=== PATIENT | male | born 1960 | race Caucasian/White ===

== ENCOUNTER 2017-08-17 01:09 | Emergency (ER) | payer MEDICARE, MEDICAID ==
[~2017-08-17] VITALS: Ht 180.3 cm; Wt 81.2 kg
[~2017-08-17 01:09] MED LIST: ALBU8.5H8 IH; AMLO10TA89 PO; HYDR-3972 PO
[2017-08-17 03:46] VITALS: BP 134/83
== END 2017-08-17 04:29 | disposition home or self-care (01) ==
LOC: ER 01:09
DX: J22 Unspecified acute lower respiratory infection (principal); I10 Essential (primary) hypertension; J44.9 Chronic obstructive pulmonary disease, unspecified; G89.29 Other chronic pain; Z98.890 Other specified postprocedural states
CPT/HCPCS: 99281

== ENCOUNTER 2017-10-11 09:07 | Emergency (ER) | payer MEDICARE, MEDICAID ==
[~2017-10-11] VITALS: Ht 175.3 cm; Wt 80.0 kg
[2017-10-11 09:13] VITALS: BP 133/94
[2017-10-11] MEDS ORDERED: ibuprofen tablet 400 MG TABLET PO ONE (10:30)
[2017-10-11] MEDS ORDERED: HYDR-565 PO (11:40)
== END 2017-10-11 12:09 | disposition home or self-care (01) ==
LOC: ER 09:08
DX: M25.531 Pain in right wrist (principal); I10 Essential (primary) hypertension; J44.9 Chronic obstructive pulmonary disease, unspecified; M19.90 Unspecified osteoarthritis, unspecified site; G89.29 Other chronic pain; Z90.49 Acquired absence of other specified parts of digestive tract; Z98.890 Other specified postprocedural states; Z79.899 Other long term (current) drug therapy; W19.XXXA Unspecified fall, initial encounter; Y93.89 Activity, other specified; Y92.89 Other specified places as the place of occurrence of the external cause; Y99.9 Unspecified external cause status
CPT/HCPCS: 29125; 73100; 99284; A6449

== ENCOUNTER 2017-11-17 14:48 | Emergency (ER) | payer MEDICARE, MEDICAID ==
[~2017-11-17] VITALS: Ht 180.3 cm; Wt 63.0 kg
[2017-11-17 14:51] VITALS: BP 126/77
== END 2017-11-17 16:17 | disposition home or self-care (01) ==
LOC: ER 14:48
DX: S92.251A Displaced fracture of navicular [scaphoid] of right foot, initial encounter for closed fracture (principal); I10 Essential (primary) hypertension; I25.2 Old myocardial infarction; J44.9 Chronic obstructive pulmonary disease, unspecified; M19.90 Unspecified osteoarthritis, unspecified site; G89.29 Other chronic pain; Z90.49 Acquired absence of other specified parts of digestive tract; Z98.890 Other specified postprocedural states; Z79.899 Other long term (current) drug therapy; W18.39XA Other fall on same level, initial encounter; Y93.89 Activity, other specified; Y92.89 Other specified places as the place of occurrence of the external cause; Y99.8 Other external cause status
CPT/HCPCS: 29125; 73110; 99284

== ENCOUNTER 2017-11-18 14:13 | Outpatient (CLI) | payer MEDICARE, MEDICAID | END 2017-11-18 15:03 | disposition home or self-care (01) | LOC: ORTHO 14:13 | PROVIDERS: ATTEND Nurse Practitioner Family | DX: M19.032 Primary osteoarthritis, left wrist (principal); I10 Essential (primary) hypertension; Z72.89 Other problems related to lifestyle | CPT/HCPCS: 73110; 99213 ==

== ENCOUNTER 2017-12-08 04:11 | Emergency (ER) | payer MEDICARE, MEDICAID ==
[~2017-12-08] VITALS: Ht 180.3 cm; Wt 75.3 kg
[2017-12-08 04:19] VITALS: BP 151/96
[2017-12-08] MEDS ORDERED: HYDROcodone/acetaminophen 10/325mg tab PO ONE (04:40)
[2017-12-08] MEDS ORDERED: HYDR-569 PO (04:55)
[2017-12-08] MEDS ORDERED: AMOX-580 PO (04:55)
== END 2017-12-08 05:27 | disposition home or self-care (01) ==
LOC: ER 04:11
DX: S61.412A Laceration without foreign body of left hand, initial encounter (principal); S61.452A Open bite of left hand, initial encounter; I10 Essential (primary) hypertension; I25.2 Old myocardial infarction; J44.9 Chronic obstructive pulmonary disease, unspecified; M19.90 Unspecified osteoarthritis, unspecified site; G89.29 Other chronic pain; Z90.49 Acquired absence of other specified parts of digestive tract; Z98.890 Other specified postprocedural states; Z79.899 Other long term (current) drug therapy; W54.0XXA Bitten by dog, initial encounter; Y93.89 Activity, other specified; Y92.89 Other specified places as the place of occurrence of the external cause; Y99.8 Other external cause status
CPT/HCPCS: 73130; 99284; A6446; A6449

== ENCOUNTER 2017-12-09 14:12 | Inpatient (IN) | payer MEDICARE, MEDICAID ==
[~2017-12-09] VITALS: Ht 180.3 cm; Wt 75.6 kg
[~2017-12-09 14:12] MED LIST changes: +AMOX-580 PO; +HYDR-569 PO
[2017-12-09] MEDS ORDERED: piperacillin/tazo 3.375gm/50ml 50 ML IV ONE (15:35)
[2017-12-09] MEDS ORDERED: normal saline 1000ML IV soln IV ONE (15:35)
[2017-12-09] MEDS ORDERED: vancomycin/NS 1 GM ADD-VANTAGE 250 ML IV ONE (15:35)
[2017-12-09 16:01] LABS: BASOPHILS % (AUTO) 0.6 % (0-1); EOSINOPHILS # (AUTO) 0.3 X10'3 (0-0.9); EOSINOPHILS % (AUTO) 4.8 % (0-6); HEMATOCRIT 39.3 % (42.0-52.0); LYMPHOCYTES % (AUTO) 15.8 % (21-51); MEAN CORPUSCULAR HEMOGLOBIN 26.6 PG (27.0-31.0); MEAN CORPUSCULAR HGB CONC 33.2 % (33.0-36.5); MEAN CORPUSCULAR VOLUME 80.2 FL (78-98); MONOCYTES # (AUTO) 0.7 X10'3 (0-0.9); MONOCYTES % (AUTO) 11.4 % (2-12); NEUTROPHILS # (AUTO) 4.1 X10'3 (1.8-7.7); NEUTROPHILS % (AUTO) 67.4 % (42-75); PLATELET COUNT 324 X10'3 (140-440); RED CELL DISTRIBUTION WIDTH 17.1 % (11.5-14.5); WHITE BLOOD COUNT 6.1 X10'3 (4.5-11.0)
[2017-12-09] MEDS ORDERED: morphine 4 MG/ML inj SYRINge IV ONE (16:15)
[2017-12-09] MEDS ORDERED: ondansetron/PF 4mg/2ml inj IV ONE (16:15)
[2017-12-09 16:16] LABS: ALANINE AMINOTRANSFERASE 22 U/L (12-78); ALBUMIN 3.4 G/DL (3.4-5.0); ALBUMIN/GLOBULIN RATIO 0.7 (1.1-1.5); ALKALINE PHOSPHATASE 98 IU/L (46-116); ANION GAP 12 (8-16); ASPARTATE AMINO TRANSFERASE 19 U/L (10-37); BILIRUBIN,TOTAL 0.7 MG/DL (0.1-1.0); BLOOD UREA NITROGEN 14 MG/DL (7-18); BUN/CREATININE RATIO 15.1 (5.4-32.0); CALCIUM 9.2 MG/DL (8.5-10.1); CHLORIDE 104 MMOL/L (99-107); CREATININE 0.93 MG/DL (0.60-1.10); POTASSIUM 3.5 MMOL/L (3.5-5.1); SODIUM 139 MMOL/L (135-145); TOTAL CARBON DIOXIDE 23.5 MMOL/L (24-32); TOTAL PROTEIN 8.4 G/DL (6.4-8.2); eGFR 83 ML/MIN
[2017-12-09 16:17] LABS: GLUCOSE 94 MG/DL (70-104)
[2017-12-09 18:10] VITALS: BP 130/70
[2017-12-09] MEDS ORDERED: mag hydrox/Alum hydrox/simeth 30ml oral suspension PO PRN (18:35)
[2017-12-09] MEDS ORDERED: morphine 4 MG/ML inj SYRINge IV PRN ×2 (18:35)
[2017-12-09] MEDS ORDERED: acetaminophen 325mg tablet PO PRN ×2 (18:35)
[2017-12-09] MEDS ORDERED: magnesium Cl slow-release 64mg tablet PO PRN (18:35)
[2017-12-09] MEDS ORDERED: ondansetron/PF 4mg/2ml inj IV PRN (18:35)
[2017-12-09] MEDS ORDERED: magnesium 4gm in 100ml NS 100 ML IV PRN (18:35)
[2017-12-09] MEDS ORDERED: potassium Cl 40MEQ/NS 500ml 500 ML IV PRN ×2 (18:35)
[2017-12-09] MEDS ORDERED: HYDROcodone/acetaminophen 5mg/325mg tablet PO PRN (18:35)
[2017-12-09] MEDS ORDERED: magnesium 1gm/100ml D5W IVPB 100 ML IV PRN (18:35)
[2017-12-09] MEDS ORDERED: magnesium hydroxide 30ml (MOM) UD suspension PO PRN (18:35)
[2017-12-09] MEDS ORDERED: diphenhydrAMINE 25mg capsule PO PRN (18:35)
[2017-12-09] MEDS: K and/or MAG REPLACEMENT MC SCH (18:35)
[2017-12-09] MEDS ORDERED: potassium Cl 20 mEq SR tablet PO PRN ×2 (18:35)
[2017-12-09] MEDS: normal saline 1000ml 1,000 ML IV SCH (19:38)
[2017-12-09] MEDS: piperacillin/tazo 3.375gm/50ml 50 ML IV SCH (21:16)
[2017-12-10] VITALS: BP 158/89
[2017-12-10] MEDS: piperacillin/tazo 3.375gm/50ml 50 ML IV SCH ×4 (01:08→22:30)
[2017-12-10] MEDS: vancomycin/NS 1 GM ADD-VANTAGE 250 ML IV SCH ×3 (03:12→17:34)
[2017-12-10] MEDS: normal saline 1000ml 1,000 ML IV SCH ×2 (03:16→16:41)
[2017-12-10 05:01] LABS: BASOPHILS % (AUTO) 0.5 % (0-1); EOSINOPHILS # (AUTO) 0.3 X10'3 (0-0.9); EOSINOPHILS % (AUTO) 6.6 % (0-6); HEMATOCRIT 33.6 % (42.0-52.0); LYMPHOCYTES # (AUTO) 1.1 X10'3 (1.1-4.8); LYMPHOCYTES % (AUTO) 21.4 % (21-51); MEAN CORPUSCULAR HEMOGLOBIN 26.6 PG (27.0-31.0); MEAN CORPUSCULAR HGB CONC 32.8 % (33.0-36.5); MEAN CORPUSCULAR VOLUME 81.1 FL (78-98); MEAN PLATELET VOLUME 8.3 FL (7.4-10.4); MONOCYTES # (AUTO) 0.8 X10'3 (0-0.9); MONOCYTES % (AUTO) 15.7 % (2-12); NEUTROPHILS # (AUTO) 2.9 X10'3 (1.8-7.7); NEUTROPHILS % (AUTO) 55.8 % (42-75); PLATELET COUNT 241 X10'3 (140-440); RED BLOOD COUNT 4.15 X10'6 (4.70-6.10); RED CELL DISTRIBUTION WIDTH 17.8 % (11.5-14.5); WHITE BLOOD COUNT 5.2 X10'3 (4.5-11.0)
[2017-12-10 05:23] LABS: ALANINE AMINOTRANSFERASE 21 U/L (12-78); ALBUMIN 2.7 G/DL (3.4-5.0); ALBUMIN/GLOBULIN RATIO 0.7 (1.1-1.5); ALKALINE PHOSPHATASE 76 IU/L (46-116); ANION GAP 5 (8-16); ASPARTATE AMINO TRANSFERASE 20 U/L (10-37); BILIRUBIN,TOTAL 0.5 MG/DL (0.1-1.0); BLOOD UREA NITROGEN 14 MG/DL (7-18); BUN/CREATININE RATIO 14.9 (5.4-32.0); CALCIUM 8.1 MG/DL (8.5-10.1); CHLORIDE 107 MMOL/L (99-107); CREATININE 0.94 MG/DL (0.60-1.10); PHOSPHORUS 3.7 MG/DL (2.3-4.5); SODIUM 139 MMOL/L (135-145); TOTAL PROTEIN 6.8 G/DL (6.4-8.2); eGFR 82 ML/MIN
[2017-12-10 05:25] LABS: GLUCOSE 89 MG/DL (70-104)
[2017-12-10 07:11] VITALS: BP 154/87
[2017-12-10] MEDS: K and/or MAG REPLACEMENT MC SCH (08:00)
[2017-12-10] MEDS: enoxaparin 40mg/0.4ml syringe SUBCUT SCH (10:02)
[2017-12-10 12:22] VITALS: BP 137/90
[2017-12-10] MEDS ORDERED: VANCOMYCIN LEVEL IV ONE (16:30)
[2017-12-10 18:00] VITALS: BP 135/71
[2017-12-10] MEDS: lactobacillus rhamnosus 10,000 MMU CELLS/CAPSULE PO SCH (20:27)
[2017-12-10] MEDS: HYDROcodone/acetaminophen 10/325mg tab PO PRN (22:34)
[2017-12-11 00:19] VITALS: BP 128/74
[2017-12-11] MEDS: normal saline 1000ml 1,000 ML IV SCH ×3 (00:34→20:15)
[2017-12-11] MEDS: piperacillin/tazo 3.375gm/50ml 50 ML IV SCH ×4 (02:08→20:16)
[2017-12-11] MEDS: vancomycin/NS 1 GM ADD-VANTAGE 250 ML IV SCH ×3 (03:45→17:14)
[2017-12-11 05:17] LABS: BASOPHILS % (AUTO) 0.7 % (0-1); EOSINOPHILS # (AUTO) 0.4 X10'3 (0-0.9); EOSINOPHILS % (AUTO) 7.2 % (0-6); HEMOGLOBIN 11.4 g/dl (14.0-17.9); LYMPHOCYTES # (AUTO) 1.3 X10'3 (1.1-4.8); LYMPHOCYTES % (AUTO) 24.7 % (21-51); MEAN CORPUSCULAR HEMOGLOBIN 26.5 PG (27.0-31.0); MEAN CORPUSCULAR HGB CONC 32.5 % (33.0-36.5); MEAN CORPUSCULAR VOLUME 81.4 FL (78-98); MEAN PLATELET VOLUME 8.5 FL (7.4-10.4); MONOCYTES # (AUTO) 0.7 X10'3 (0-0.9); NEUTROPHILS # (AUTO) 2.7 X10'3 (1.8-7.7); NEUTROPHILS % (AUTO) 53.4 % (42-75); PLATELET COUNT 244 X10'3 (140-440); RED CELL DISTRIBUTION WIDTH 17.2 % (11.5-14.5); WHITE BLOOD COUNT 5.1 X10'3 (4.5-11.0)
[2017-12-11 06:37] LABS: ALANINE AMINOTRANSFERASE 18 U/L (12-78); ALBUMIN 2.7 G/DL (3.4-5.0); ALBUMIN/GLOBULIN RATIO 0.6 (1.1-1.5); ALKALINE PHOSPHATASE 78 IU/L (46-116); ANION GAP 7 (8-16); ASPARTATE AMINO TRANSFERASE 17 U/L (10-37); BILIRUBIN,TOTAL 0.4 MG/DL (0.1-1.0); BLOOD UREA NITROGEN 9 MG/DL (7-18); BUN/CREATININE RATIO 8.3 (5.4-32.0); CALCIUM 8.2 MG/DL (8.5-10.1); CHLORIDE 105 MMOL/L (99-107); CREATININE 1.09 MG/DL (0.60-1.10); MAGNESIUM 1.9 MG/DL (1.5-2.4); PHOSPHORUS 3.2 MG/DL (2.3-4.5); SODIUM 140 MMOL/L (135-145); TOTAL PROTEIN 6.9 G/DL (6.4-8.2); eGFR 69 ML/MIN
[2017-12-11 06:38] LABS: GLUCOSE 84 MG/DL (70-104)
[2017-12-11 07:03] VITALS: BP 126/87
[2017-12-11] MEDS: lactobacillus rhamnosus 10,000 MMU CELLS/CAPSULE PO SCH ×2 (07:14→20:16)
[2017-12-11] MEDS: enoxaparin 40mg/0.4ml syringe SUBCUT SCH (07:19)
[2017-12-11] MEDS: HYDROcodone/acetaminophen 10/325mg tab PO PRN ×2 (07:23→17:11)
[2017-12-11] MEDS: K and/or MAG REPLACEMENT MC SCH (08:00)
[2017-12-11 11:22] VITALS: BP 136/85
[2017-12-11 19:00] VITALS: BP 155/81
[2017-12-12] VITALS: BP 155/84
[2017-12-12] MEDS: piperacillin/tazo 3.375gm/50ml 50 ML IV SCH ×2 (01:31→07:55)
[2017-12-12] MEDS: vancomycin/NS 1 GM ADD-VANTAGE 250 ML IV SCH ×2 (03:03→11:00)
[2017-12-12 05:58] LABS: BASOPHILS % (AUTO) 0.5 % (0-1); EOSINOPHILS # (AUTO) 0.4 X10'3 (0-0.9); EOSINOPHILS % (AUTO) 5.6 % (0-6); HEMATOCRIT 38.6 % (42.0-52.0); HEMOGLOBIN 12.9 g/dl (14.0-17.9); LYMPHOCYTES # (AUTO) 1.3 X10'3 (1.1-4.8); LYMPHOCYTES % (AUTO) 17.4 % (21-51); MEAN CORPUSCULAR HEMOGLOBIN 27.2 PG (27.0-31.0); MEAN CORPUSCULAR HGB CONC 33.4 % (33.0-36.5); MEAN CORPUSCULAR VOLUME 81.3 FL (78-98); MEAN PLATELET VOLUME 8.9 FL (7.4-10.4); MONOCYTES # (AUTO) 0.7 X10'3 (0-0.9); MONOCYTES % (AUTO) 9.5 % (2-12); NEUTROPHILS # (AUTO) 5.2 X10'3 (1.8-7.7); PLATELET COUNT 310 X10'3 (140-440); RED BLOOD COUNT 4.75 X10'6 (4.70-6.10); WHITE BLOOD COUNT 7.7 X10'3 (4.5-11.0)
[2017-12-12 06:10] LABS: ALANINE AMINOTRANSFERASE 23 U/L (12-78); ALBUMIN 3.1 G/DL (3.4-5.0); ALBUMIN/GLOBULIN RATIO 0.7 (1.1-1.5); ALKALINE PHOSPHATASE 86 IU/L (46-116); ANION GAP 7 (8-16); ASPARTATE AMINO TRANSFERASE 16 U/L (10-37); BILIRUBIN,TOTAL 0.4 MG/DL (0.1-1.0); BLOOD UREA NITROGEN 9 MG/DL (7-18); BUN/CREATININE RATIO 7.7 (5.4-32.0); CHLORIDE 104 MMOL/L (99-107); CREATININE 1.17 MG/DL (0.60-1.10); MAGNESIUM 1.9 MG/DL (1.5-2.4); PHOSPHORUS 4.3 MG/DL (2.3-4.5); POTASSIUM 3.9 MMOL/L (3.5-5.1); SODIUM 140 MMOL/L (135-145); TOTAL PROTEIN 7.7 G/DL (6.4-8.2); eGFR 64 ML/MIN
[2017-12-12 06:11] LABS: GLUCOSE 87 MG/DL (70-104)
[2017-12-12] MEDS: normal saline 1000ml 1,000 ML IV SCH (06:34)
[2017-12-12 07:00] VITALS: BP 158/84
[2017-12-12] MEDS: K and/or MAG REPLACEMENT MC SCH (07:05)
[2017-12-12] MEDS: HYDROcodone/acetaminophen 10/325mg tab PO PRN (07:56)
[2017-12-12] MEDS: lactobacillus rhamnosus 10,000 MMU CELLS/CAPSULE PO SCH (07:56)
[2017-12-12] MEDS: enoxaparin 40mg/0.4ml syringe SUBCUT SCH (07:57)
[2017-12-12] MEDS ORDERED: LACT1CAP26 PO (10:51)
[2017-12-12] MEDS ORDERED: AMOX-419 PO (10:51)
[2017-12-12 11:23] VITALS: BP 167/83
[2017-12-12] MEDS ORDERED: HYDR-3965 PO (11:36)
== END 2017-12-12 14:00 | disposition home or self-care (01) | DRG 603 ==
LOC: ER 14:12 → ED HOLD 18:34 → SUR 3N 20:10
PROVIDERS: ADMIT Family Medicine; ATTEND Family Medicine
DX: L03.114 Cellulitis of left upper limb (principal); I10 Essential (primary) hypertension; J44.9 Chronic obstructive pulmonary disease, unspecified; M54.9 Dorsalgia, unspecified; F12.90 Cannabis use, unspecified, uncomplicated; G89.29 Other chronic pain; M19.90 Unspecified osteoarthritis, unspecified site; W54.0XXD Bitten by dog, subsequent encounter; I25.2 Old myocardial infarction; Z90.49 Acquired absence of other specified parts of digestive tract; Z87.891 Personal history of nicotine dependence
CPT/HCPCS: 36415; 80053; 80202; 83605; 83735; 84100; 84145; 85025; 87040; 87070; 96365; 96375; 99285; J1650; J2270; J2405; J2543; J3370; J7030

== ENCOUNTER 2018-02-20 08:46 | Emergency (ER) | payer MEDICARE, MEDICAID ==
[~2018-02-20] VITALS: Ht 180.3 cm; Wt 75.0 kg
[~2018-02-20 08:46] MED LIST changes: -AMOX-580 PO; -HYDR-3972 PO; +HYDR-4383 PO; -HYDR-569 PO; +LACT1CAP26 PO
[2018-02-20 09:05] VITALS: BP 145/88
[2018-02-20] MEDS ORDERED: ketorolac tromethamine 15mg/ml inj. IM ONE (10:05)
[2018-02-20] MEDS ORDERED: CYCL-1 PO (10:10)
== END 2018-02-20 10:16 | disposition home or self-care (01) ==
LOC: ER 08:47
DX: S39.012A Strain of muscle, fascia and tendon of lower back, initial encounter (principal); I10 Essential (primary) hypertension; I25.2 Old myocardial infarction; J44.9 Chronic obstructive pulmonary disease, unspecified; M19.90 Unspecified osteoarthritis, unspecified site; G89.29 Other chronic pain; Z90.49 Acquired absence of other specified parts of digestive tract; Z79.899 Other long term (current) drug therapy; X50.1XXA Overexertion from prolonged static or awkward postures, initial encounter; Y93.89 Activity, other specified; Y92.89 Other specified places as the place of occurrence of the external cause; Y99.8 Other external cause status
CPT/HCPCS: 96372; 99284; J1885

== ENCOUNTER 2018-02-22 16:50 | Emergency (ER) | payer MEDICARE, MEDICAID ==
[~2018-02-22] VITALS: Ht 180.3 cm; Wt 75.0 kg
[~2018-02-22 16:50] MED LIST changes: +CYCL-1 PO
[2018-02-22] MEDS ORDERED: ondansetron/PF 4mg/2ml inj IV ONE (17:20)
[2018-02-22] MEDS ORDERED: morphine 4 MG/ML inj SYRINge IV ONE (17:20)
[2018-02-22] MEDS ORDERED: normal saline 1000ML IV soln IVB ONE ×2 (17:20→18:30)
[2018-02-22 18:01] LABS: BASOPHILS # (AUTO) 0.1 X10'3 (0-0.2); BASOPHILS % (AUTO) 0.7 % (0-1); EOSINOPHILS # (AUTO) 0.2 X10'3 (0-0.9); EOSINOPHILS % (AUTO) 3.4 % (0-6); HEMATOCRIT 45.2 % (42.0-52.0); HEMOGLOBIN 15.2 g/dl (14.0-17.9); LYMPHOCYTES # (AUTO) 1.6 X10'3 (1.1-4.8); LYMPHOCYTES % (AUTO) 22.1 % (21-51); MEAN CORPUSCULAR HEMOGLOBIN 27.8 PG (27.0-31.0); MEAN CORPUSCULAR HGB CONC 33.5 % (33.0-36.5); MEAN CORPUSCULAR VOLUME 82.8 FL (78-98); MEAN PLATELET VOLUME 8.7 FL (7.4-10.4); MONOCYTES # (AUTO) 0.7 X10'3 (0-0.9); MONOCYTES % (AUTO) 9.9 % (2-12); NEUTROPHILS # (AUTO) 4.5 X10'3 (1.8-7.7); NEUTROPHILS % (AUTO) 63.9 % (42-75); PLATELET COUNT 292 X10'3 (140-440); RED BLOOD COUNT 5.46 X10'6 (4.70-6.10); RED CELL DISTRIBUTION WIDTH 15.8 % (11.5-14.5); WHITE BLOOD COUNT 7.1 X10'3 (4.5-11.0)
[2018-02-22 18:19] LABS: ALANINE AMINOTRANSFERASE 31 U/L (12-78); ALBUMIN 3.9 G/DL (3.4-5.0); ALKALINE PHOSPHATASE 84 IU/L (46-116); ANION GAP 3 (8-16); ASPARTATE AMINO TRANSFERASE 24 U/L (10-37); BILIRUBIN,TOTAL 0.6 MG/DL (0.1-1.0); BLOOD UREA NITROGEN 21 MG/DL (7-18); BUN/CREATININE RATIO 18.8 (5.4-32.0); CALCIUM 9.7 MG/DL (8.5-10.1); CHLORIDE 105 MMOL/L (99-107); CREATININE 1.12 MG/DL (0.60-1.10); POTASSIUM 4.2 MMOL/L (3.5-5.1); SODIUM 142 MMOL/L (135-145); TOTAL CARBON DIOXIDE 33.9 MMOL/L (24-32); eGFR 67 ML/MIN
[2018-02-22 18:20] LABS: LIPASE 202 U/L (73-393)
[2018-02-22 18:21] LABS: GLUCOSE 87 MG/DL (70-104)
[2018-02-22 21:01] VITALS: BP 160/100
== END 2018-02-22 21:03 | disposition home or self-care (01) ==
LOC: ER 16:51
DX: R10.11 Right upper quadrant pain (principal); R10.12 Left upper quadrant pain; I10 Essential (primary) hypertension; I25.2 Old myocardial infarction; G89.29 Other chronic pain; J44.9 Chronic obstructive pulmonary disease, unspecified; M19.90 Unspecified osteoarthritis, unspecified site; Z90.49 Acquired absence of other specified parts of digestive tract; Z79.899 Other long term (current) drug therapy
CPT/HCPCS: 36415; 74176; 80053; 83690; 85025; 96374; 96375; 99285; J2270; J2405

== ENCOUNTER 2018-02-23 20:22 | Emergency (ER) | payer MEDICARE, MEDICAID ==
[~2018-02-23] VITALS: Ht 180.3 cm; Wt 75.0 kg
[2018-02-23 20:45] VITALS: BP 158/80
[2018-02-23 22:53] LABS: BASOPHILS % (AUTO) 0.4 % (0-1); EOSINOPHILS # (AUTO) 0.2 X10'3 (0-0.9); EOSINOPHILS % (AUTO) 3.3 % (0-6); HEMATOCRIT 40.6 % (42.0-52.0); HEMOGLOBIN 13.5 g/dl (14.0-17.9); LYMPHOCYTES # (AUTO) 1.6 X10'3 (1.1-4.8); LYMPHOCYTES % (AUTO) 22.7 % (21-51); MEAN CORPUSCULAR HEMOGLOBIN 27.5 PG (27.0-31.0); MEAN CORPUSCULAR HGB CONC 33.3 % (33.0-36.5); MEAN CORPUSCULAR VOLUME 82.6 FL (78-98); MEAN PLATELET VOLUME 8.4 FL (7.4-10.4); MONOCYTES # (AUTO) 0.6 X10'3 (0-0.9); MONOCYTES % (AUTO) 8.7 % (2-12); NEUTROPHILS # (AUTO) 4.6 X10'3 (1.8-7.7); NEUTROPHILS % (AUTO) 64.9 % (42-75); PLATELET COUNT 259 X10'3 (140-440); RED BLOOD COUNT 4.92 X10'6 (4.70-6.10); RED CELL DISTRIBUTION WIDTH 15.7 % (11.5-14.5); WHITE BLOOD COUNT 7.1 X10'3 (4.5-11.0)
[2018-02-23 23:07] LABS: ALANINE AMINOTRANSFERASE 25 U/L (12-78); ALBUMIN 3.5 G/DL (3.4-5.0); ALBUMIN/GLOBULIN RATIO 0.9 (1.1-1.5); ALKALINE PHOSPHATASE 92 IU/L (46-116); ANION GAP 7 (8-16); ASPARTATE AMINO TRANSFERASE 30 U/L (10-37); BILIRUBIN,TOTAL 0.5 MG/DL (0.1-1.0); BLOOD UREA NITROGEN 16 MG/DL (7-18); CALCIUM 8.5 MG/DL (8.5-10.1); CHLORIDE 106 MMOL/L (99-107); CREATININE 1.07 MG/DL (0.60-1.10); LIPASE 203 U/L (73-393); POTASSIUM 4.4 MMOL/L (3.5-5.1); SODIUM 142 MMOL/L (135-145); TOTAL PROTEIN 7.2 G/DL (6.4-8.2); eGFR 71 ML/MIN
[2018-02-23 23:10] LABS: GLUCOSE 105 MG/DL (70-104)
[2018-02-23 23:13] LABS: ETHANOL < 0.010 GM/DL (0.0-0.010)
== END 2018-02-24 00:45 | disposition home or self-care (01) ==
LOC: ER 20:22
DX: R10.9 Unspecified abdominal pain (principal); I10 Essential (primary) hypertension; I25.2 Old myocardial infarction; J44.9 Chronic obstructive pulmonary disease, unspecified; M19.90 Unspecified osteoarthritis, unspecified site; G89.29 Other chronic pain; Z90.49 Acquired absence of other specified parts of digestive tract; Z98.890 Other specified postprocedural states; Z79.899 Other long term (current) drug therapy
CPT/HCPCS: 36415; 74176; 80053; 80320; 83690; 85025; 99285

== ENCOUNTER 2018-03-31 11:07 | Emergency (ER) | payer MEDICARE, MEDICAID ==
[~2018-03-31] VITALS: Ht 154.9 cm; Wt 75.0 kg
[2018-03-31 11:21] VITALS: BP 159/86
[2018-03-31] MEDS ORDERED: AZIT500T PO (12:33)
== END 2018-03-31 12:43 | disposition home or self-care (01) ==
LOC: ER 11:08
DX: R05 Cough (principal); J00 Acute nasopharyngitis [common cold]; R09.89 Other specified symptoms and signs involving the circulatory and respiratory systems; R06.02 Shortness of breath; R07.9 Chest pain, unspecified; I10 Essential (primary) hypertension; I25.2 Old myocardial infarction; J44.9 Chronic obstructive pulmonary disease, unspecified; M19.90 Unspecified osteoarthritis, unspecified site; G89.29 Other chronic pain; Z90.49 Acquired absence of other specified parts of digestive tract; Z98.890 Other specified postprocedural states; Z79.2 Long term (current) use of antibiotics; Z79.899 Other long term (current) drug therapy
CPT/HCPCS: 71046; 99283

== ENCOUNTER 2018-04-21 20:43 | Emergency (ER) | payer MEDICARE, MEDICAID ==
[~2018-04-21] VITALS: Ht 180.3 cm; Wt 83.0 kg
[~2018-04-21 20:43] MED LIST changes: +BENZ-38 PO; +GUAI120L55 PO
--- NOTE | 2018-04-21 22:35 | NUR ---
pt resting quietly on gurney, waiting to be evaluated
--- NOTE | 2018-04-21 23:30 | NUR ---
pt continues to rest quietly on gurney, waiting to be evaluated by provider
[2018-04-22 03:37] VITALS: BP 128/70
== END 2018-04-22 03:46 | disposition home or self-care (01) ==
LOC: ER 20:44
DX: J20.9 Acute bronchitis, unspecified (principal); I10 Essential (primary) hypertension; I25.2 Old myocardial infarction; J44.9 Chronic obstructive pulmonary disease, unspecified; M19.90 Unspecified osteoarthritis, unspecified site; G89.29 Other chronic pain; Z90.49 Acquired absence of other specified parts of digestive tract; Z98.890 Other specified postprocedural states; Z59.0 Homelessness; Z79.899 Other long term (current) drug therapy
CPT/HCPCS: 99283

== ENCOUNTER 2018-05-17 03:15 | Emergency (ER) | payer MEDICARE, MEDICAID ==
[~2018-05-17] VITALS: Ht 180.3 cm; Wt 72.9 kg
[~2018-05-17 03:15] MED LIST changes: -BENZ-38 PO
[2018-05-17 03:25] VITALS: BP 127/83
--- NOTE | 2018-05-17 03:48 | NUR ---
Patient laying comfortably on gurney, reports bilateral knee pain 8/10. I will continue to monitor.
== END 2018-05-17 03:56 | disposition home or self-care (01) ==
LOC: ER 03:16
DX: M25.562 Pain in left knee (principal); M25.561 Pain in right knee; I10 Essential (primary) hypertension; I52 Other heart disorders in diseases classified elsewhere; J44.9 Chronic obstructive pulmonary disease, unspecified; M19.90 Unspecified osteoarthritis, unspecified site; G89.29 Other chronic pain; Z90.49 Acquired absence of other specified parts of digestive tract; Z98.890 Other specified postprocedural states; Z79.899 Other long term (current) drug therapy; Z59.0 Homelessness
CPT/HCPCS: 99281

== ENCOUNTER 2018-07-14 10:35 | Emergency (ER) | payer MEDICARE, MEDICAID ==
[~2018-07-14] VITALS: Ht 180.3 cm; Wt 75.0 kg
[~2018-07-14 10:35] MED LIST changes: +ONDA4TAB6 PO
[2018-07-14 10:56] VITALS: BP 154/89
== END 2018-07-14 12:09 | disposition home or self-care (01) ==
LOC: ER 10:36
DX: H61.21 Impacted cerumen, right ear (principal); I10 Essential (primary) hypertension; I25.2 Old myocardial infarction; J44.9 Chronic obstructive pulmonary disease, unspecified; M19.90 Unspecified osteoarthritis, unspecified site; G89.29 Other chronic pain; Z90.49 Acquired absence of other specified parts of digestive tract; Z98.890 Other specified postprocedural states; Z79.899 Other long term (current) drug therapy; Z59.0 Homelessness; Z56.0 Unemployment, unspecified; Z60.2 Problems related to living alone
CPT/HCPCS: 69209; 99282

== ENCOUNTER 2018-07-17 01:21 | Emergency (ER) | payer MEDICARE, MEDICAID ==
[~2018-07-17] VITALS: Ht 180.3 cm; Wt 75.9 kg
[2018-07-17 01:26] VITALS: BP 193/106
[2018-07-17] MEDS ORDERED: CEPH-572 PO (01:59)
[2018-07-17] MEDS ORDERED: SULF1TAB49 PO (01:59)
[2018-07-17] MEDS ORDERED: IBUP-1986 PO (02:00)
[2018-07-17] MEDS ORDERED: ibuprofen tablet 400 MG TABLET PO ONE (02:00)
[2018-07-17] MEDS ORDERED: sulfamethoxazole/trimethoprim DS (800/160mg) tablet PO ONE (02:00)
== END 2018-07-17 02:35 | disposition home or self-care (01) ==
LOC: ER 01:21
DX: L73.8 Other specified follicular disorders (principal); I10 Essential (primary) hypertension; I25.2 Old myocardial infarction; J44.9 Chronic obstructive pulmonary disease, unspecified; M19.90 Unspecified osteoarthritis, unspecified site; G89.29 Other chronic pain; Z90.49 Acquired absence of other specified parts of digestive tract; Z98.890 Other specified postprocedural states; Z79.899 Other long term (current) drug therapy; Z60.2 Problems related to living alone; Z56.0 Unemployment, unspecified; Z59.0 Homelessness
CPT/HCPCS: 99283

== ENCOUNTER 2018-07-25 13:03 | Emergency (ER) | payer MEDICARE, MEDICAID ==
[~2018-07-25] VITALS: Ht 180.3 cm; Wt 77.0 kg
[~2018-07-25 13:03] MED LIST changes: +CEPH-572 PO; +IBUP-1986 PO; +SULF1TAB49 PO
[2018-07-25] MEDS ORDERED: levoFLOXACIN 750MG TABLET PO ONE (14:10)
--- NOTE | 2018-07-25 14:57 | NUR ---
CALL FROM CASE MANAGEMENT AT THIS TIME REGARDING MEDICATION FILL AT THIS TIME. PER CASE MANAGEMENT PATIENT HAS MEDICARE A & B AND SHOULD HAVE COVERAGE FOR MEDICATION. LAURA KELLY MADE AWARE AND UPDATED PATIENT.
[2018-07-25] MEDS ORDERED: BENZ-16 PO (15:19)
[2018-07-25] MEDS ORDERED: LEVO750T21 PO (15:19)
[2018-07-25 15:28] VITALS: BP 154/92
== END 2018-07-25 15:30 | disposition home or self-care (01) ==
LOC: ER 13:04
DX: J18.9 Pneumonia, unspecified organism (principal); I10 Essential (primary) hypertension; I25.2 Old myocardial infarction; J44.9 Chronic obstructive pulmonary disease, unspecified; M19.90 Unspecified osteoarthritis, unspecified site; G89.29 Other chronic pain; Z79.899 Other long term (current) drug therapy; Z90.49 Acquired absence of other specified parts of digestive tract; Z98.890 Other specified postprocedural states; Z56.0 Unemployment, unspecified; Z59.0 Homelessness; Z60.2 Problems related to living alone
CPT/HCPCS: 71046; 99283

== ENCOUNTER 2018-12-13 22:45 | Emergency (ER) | payer MEDICARE, MEDICAID ==
[~2018-12-13] VITALS: Ht 170.2 cm; Wt 75.0 kg
[~2018-12-13 22:45] MED LIST changes: -CEPH-572 PO; -SULF1TAB49 PO
[2018-12-13 23:15] LABS: BASOPHILS # (AUTO) 0.1 X10'3 (0-0.2); BASOPHILS % (AUTO) 0.7 % (0-1); EOSINOPHILS # (AUTO) 0.2 X10'3 (0-0.9); EOSINOPHILS % (AUTO) 2.1 % (0-6); HEMATOCRIT 42.8 % (42.0-52.0); HEMOGLOBIN 14.5 g/dl (14.0-17.9); LYMPHOCYTES # (AUTO) 1.3 X10'3 (1.1-4.8); LYMPHOCYTES % (AUTO) 13.7 % (21-51); MEAN CORPUSCULAR HEMOGLOBIN 29.6 PG (27.0-31.0); MEAN CORPUSCULAR HGB CONC 33.9 g/dL (33.0-36.5); MEAN CORPUSCULAR VOLUME 87.4 FL (78-98); MEAN PLATELET VOLUME 8.7 FL (7.4-10.4); MONOCYTES # (AUTO) 0.9 X10'3 (0-0.9); MONOCYTES % (AUTO) 9.1 % (2-12); NEUTROPHILS % (AUTO) 74.4 % (42-75); PLATELET COUNT 271 X10'3 (140-440); RED BLOOD COUNT 4.89 X10'6 (4.70-6.10); RED CELL DISTRIBUTION WIDTH 13.9 % (11.5-14.5); WHITE BLOOD COUNT 9.5 X10'3 (4.5-11.0)
[2018-12-13 23:27] LABS: ALANINE AMINOTRANSFERASE 32 U/L (12-78); ALBUMIN 4.1 G/DL (3.4-5.0); ALBUMIN/GLOBULIN RATIO 1.1 (1.1-1.5); ALKALINE PHOSPHATASE 81 IU/L (46-116); ANION GAP 8 (8-16); ASPARTATE AMINO TRANSFERASE 24 U/L (10-37); BILIRUBIN,TOTAL 0.8 MG/DL (0.1-1.0); BLOOD UREA NITROGEN 21 MG/DL (7-18); BUN/CREATININE RATIO 17.2 (5.4-32.0); CALCIUM 9.3 MG/DL (8.5-10.1); CHLORIDE 107 MMOL/L (99-107); CREATININE 1.22 MG/DL (0.60-1.10); POTASSIUM 3.4 MMOL/L (3.5-5.1); SODIUM 142 MMOL/L (135-145); TOTAL CARBON DIOXIDE 26.6 MMOL/L (24-32); TOTAL PROTEIN 7.7 G/DL (6.4-8.2); eGFR 61 ML/MIN
[2018-12-13 23:29] LABS: GLUCOSE 121 MG/DL (70-104)
--- NOTE | 2018-12-14 00:13 | NUR ---
discussed with dr garay about pt abdominal pain .order to give morphine 4mg onces and repeat q15 min for pain.also zofran 4 mg iv once .will follow the orders.
[2018-12-14] MEDS ORDERED: morphine 4 MG/ML inj SYRINge IV PRN (00:15)
[2018-12-14] MEDS ORDERED: ondansetron/PF 4mg/2ml inj IV ONE (00:15)
--- NOTE | 2018-12-14 00:36 | NUR ---
Spoke with LAURA Wright about patient's situation and condition. CT scan ordered.
[2018-12-14 01:08] LABS: LIPASE 147 U/L (73-393)
--- NOTE | 2018-12-14 01:26 | NUR ---
Patient sleeping soundly and appears to be in no pain. He sleeps through me re-equipping him to vitals monitoring. VSS.
[2018-12-14 02:26] VITALS: BP 162/96
== END 2018-12-14 02:28 | disposition home or self-care (01) ==
LOC: ER 22:46
DX: R10.11 Right upper quadrant pain (principal); R10.13 Epigastric pain; I10 Essential (primary) hypertension; I25.2 Old myocardial infarction; J44.9 Chronic obstructive pulmonary disease, unspecified; M19.90 Unspecified osteoarthritis, unspecified site; G89.29 Other chronic pain; Z90.49 Acquired absence of other specified parts of digestive tract; Z98.890 Other specified postprocedural states; Z59.0 Homelessness; Z56.0 Unemployment, unspecified; Z79.899 Other long term (current) drug therapy
CPT/HCPCS: 36415; 74176; 80053; 83690; 85025; 96374; 96375; 99284; J2270; J2405

== ENCOUNTER 2019-02-25 15:43 | Emergency (ER) | payer MEDICARE, MEDICAID ==
[~2019-02-25] VITALS: Ht 180.3 cm; Wt 79.2 kg
[2019-02-25 15:56] VITALS: BP 163/88
[2019-02-25] MEDS ORDERED: ERYT1OIN6 EACHEYE (16:33)
== END 2019-02-25 17:08 | disposition home or self-care (01) ==
LOC: ER 15:43
DX: H10.89 Other conjunctivitis (principal); I10 Essential (primary) hypertension; I25.2 Old myocardial infarction; J44.9 Chronic obstructive pulmonary disease, unspecified; M19.90 Unspecified osteoarthritis, unspecified site; G89.29 Other chronic pain; Z90.49 Acquired absence of other specified parts of digestive tract; Z98.890 Other specified postprocedural states; Z59.0 Homelessness; Z56.0 Unemployment, unspecified; Z79.899 Other long term (current) drug therapy
CPT/HCPCS: 99283

== ENCOUNTER 2019-03-30 12:19 | Emergency (ER) | payer MEDICARE, MEDICAID ==
[~2019-03-30] VITALS: Ht 180.3 cm; Wt 75.0 kg
[2019-03-30 12:37] VITALS: BP 175/97
--- NOTE | 2019-03-30 13:32 | NUR ---
"I am going to other hospital"
== END 2019-03-30 13:36 | disposition left against medical advice (07) ==
LOC: ER 12:20
DX: S01.91XA Laceration without foreign body of unspecified part of head, initial encounter (principal); Z53.21 Procedure and treatment not carried out due to patient leaving prior to being seen by health care provider; W14.XXXA Fall from tree, initial encounter; Y93.89 Activity, other specified; Y92.89 Other specified places as the place of occurrence of the external cause; Y99.8 Other external cause status

== ENCOUNTER 2019-05-19 05:08 | Emergency (ER) | payer MEDICARE, MEDICAID ==
[~2019-05-19] VITALS: Ht 180.3 cm; Wt 68.2 kg
[2019-05-19] MEDS ORDERED: famotidine/PF 10 mg/ml inj IV ONE (05:25)
[2019-05-19] MEDS ORDERED: pantoprazole 40 MG vial IV ONE (05:25)
[2019-05-19] MEDS ORDERED: normal saline 1000ML IV soln IVB ONE (05:25)
[2019-05-19] MEDS ORDERED: ondansetron/PF 4mg/2ml inj IV ONE (05:25)
--- NOTE | 2019-05-19 05:56 | NUR ---
Pt appears to be sleeping and resting comfortably, respirations even and non labored. No obvious s/sx of pain or discomfort.
[2019-05-19 05:59] LABS: BASOPHILS # (AUTO) 0.1 X10'3 (0-0.2); BASOPHILS % (AUTO) 0.9 % (0-1); CLARITY,URINE CLEAR (Clear); COLOR,URINE YELLOW (Yellow); EOSINOPHILS # (AUTO) 0.2 X10'3 (0-0.9); EOSINOPHILS % (AUTO) 3.2 % (0-6); GLUCOSE, URINE NEGATIVE (Neg); HEMATOCRIT 41.5 % (42.0-52.0); HEMOGLOBIN 13.9 g/dl (14.0-17.9); KETONES,URINE NEGATIVE (Neg); LEUKOCYTE ESTERASE ,URINE NEGATIVE (Neg); LYMPHOCYTES # (AUTO) 1.6 X10'3 (1.1-4.8); MEAN CORPUSCULAR HEMOGLOBIN 28.5 PG (27.0-31.0); MEAN CORPUSCULAR HGB CONC 33.6 g/dL (33.0-36.5); MEAN CORPUSCULAR VOLUME 84.8 FL (78-98); MEAN PLATELET VOLUME 8.2 FL (7.4-10.4); MONOCYTES # (AUTO) 0.8 X10'3 (0-0.9); MONOCYTES % (AUTO) 11.3 % (2-12); NEUTROPHILS # (AUTO) 4.6 X10'3 (1.8-7.7); NEUTROPHILS % (AUTO) 62.6 % (42-75); NITRITES, URINE NEGATIVE (Neg); OCCULT BLOOD,URINE NEGATIVE (Neg); PH,URINE 5.5 (4.8-8.0); PLATELET COUNT 274 X10'3 (140-440); PROTEIN,URINE NEGATIVE (Neg); RED BLOOD COUNT 4.89 X10'6 (4.70-6.10); RED CELL DISTRIBUTION WIDTH 14.1 % (11.5-14.5); UROBILINOGEN,URINE 0.2 E.U/dL (0.2-1.0); WHITE BLOOD COUNT 7.4 X10'3 (4.5-11.0)
[2019-05-19 06:03] LABS: UA COLLECTION TYPE CLN CATCH MIDSTREAM
[2019-05-19 06:20] LABS: ALANINE AMINOTRANSFERASE 44 U/L (12-78); ALBUMIN 3.8 G/DL (3.4-5.0); ALBUMIN/GLOBULIN RATIO 1.1 (1.1-1.5); ALKALINE PHOSPHATASE 79 IU/L (46-116); ANION GAP 9 (8-16); ASPARTATE AMINO TRANSFERASE 30 U/L (10-37); BILIRUBIN,TOTAL 0.5 MG/DL (0.1-1.0); BLOOD UREA NITROGEN 19 MG/DL (7-18); BUN/CREATININE RATIO 18.4 (5.4-32.0); CHLORIDE 107 MMOL/L (99-107); CREATININE 1.03 MG/DL (0.60-1.10); LIPASE 126 U/L (73-393); POTASSIUM 3.6 MMOL/L (3.5-5.1); SODIUM 142 MMOL/L (135-145); TOTAL CARBON DIOXIDE 26.1 MMOL/L (24-32); TOTAL PROTEIN 7.3 G/DL (6.4-8.2); TROPONIN I < 0.04 NG/ML (0.0-0.05); eGFR 74 ML/MIN
[2019-05-19 06:25] LABS: GLUCOSE 89 MG/DL (70-104)
[2019-05-19 06:29] LABS: CALCIUM 8.6 MG/DL (8.5-10.1)
[2019-05-19 07:00] VITALS: BP 154/89
== END 2019-05-19 09:54 | disposition home or self-care (01) ==
LOC: ER 05:09
DX: K52.9 Noninfective gastroenteritis and colitis, unspecified (principal); R10.13 Epigastric pain; R11.10 Vomiting, unspecified; G89.29 Other chronic pain; I10 Essential (primary) hypertension; I25.2 Old myocardial infarction; J44.9 Chronic obstructive pulmonary disease, unspecified; M19.90 Unspecified osteoarthritis, unspecified site; Z59.0 Homelessness; Z56.0 Unemployment, unspecified; Z90.49 Acquired absence of other specified parts of digestive tract; Z98.890 Other specified postprocedural states; Z79.899 Other long term (current) drug therapy
CPT/HCPCS: 36415; 71045; 80053; 81003; 83690; 84484; 85025; 93005; 96361; 96374; 96375; 99284; C9113; J2405; J3490; J7030

== ENCOUNTER 2019-09-16 11:59 | Emergency (ER) | payer MEDICARE, MEDICAID ==
[~2019-09-16] VITALS: Ht 180.3 cm; Wt 75.0 kg
[2019-09-16 12:16] VITALS: BP 155/93
[2019-09-16] MEDS ORDERED: HYDROcodone/acetaminophen 10/325mg tab PO ONE (12:50)
== END 2019-09-16 13:06 | disposition home or self-care (01) ==
LOC: ER 11:59
DX: K08.89 Other specified disorders of teeth and supporting structures (principal); I10 Essential (primary) hypertension; I25.2 Old myocardial infarction; J44.9 Chronic obstructive pulmonary disease, unspecified; M19.90 Unspecified osteoarthritis, unspecified site; G89.29 Other chronic pain; Z90.89 Acquired absence of other organs; Z98.890 Other specified postprocedural states; Z72.89 Other problems related to lifestyle; Z60.2 Problems related to living alone; Z56.0 Unemployment, unspecified; Z59.0 Homelessness; Z79.899 Other long term (current) drug therapy
CPT/HCPCS: 99282; 99283

== ENCOUNTER 2019-09-20 11:30 | Emergency (ER) | payer MEDICARE, MEDICAID ==
[~2019-09-20] VITALS: Ht 180.3 cm; Wt 75.0 kg
[2019-09-20 11:32] VITALS: BP 163/97
[2019-09-20] MEDS ORDERED: MELO-100 PO (13:25)
[2019-09-20] MEDS ORDERED: ACET-1025 PO (13:25)
[2019-09-20] MEDS ORDERED: AMOX500C2 PO (13:25)
--- NOTE | 2019-09-20 13:33 | NUR ---
Went to discharge patient. He requested pain medication. Consulted Dr. Cunningham who was in a procedure. Order received for tylonol.
[2019-09-20] MEDS ORDERED: acetaminophen 325mg tablet PO ONE (13:35)
== END 2019-09-20 13:57 | disposition home or self-care (01) ==
LOC: ER 11:30
DX: K08.89 Other specified disorders of teeth and supporting structures (principal); I10 Essential (primary) hypertension; I25.2 Old myocardial infarction; J44.9 Chronic obstructive pulmonary disease, unspecified; M19.90 Unspecified osteoarthritis, unspecified site; G89.29 Other chronic pain; Z90.49 Acquired absence of other specified parts of digestive tract; Z98.890 Other specified postprocedural states; Z60.2 Problems related to living alone; Z59.0 Homelessness; Z56.0 Unemployment, unspecified; Z72.89 Other problems related to lifestyle; Z79.899 Other long term (current) drug therapy
CPT/HCPCS: 99283

== ENCOUNTER 2020-11-26 01:50 | Emergency (ER) | payer MEDICARE, MEDICAID ==
[~2020-11-26] VITALS: Ht 180.3 cm; Wt 73.0 kg
[~2020-11-26 01:50] MED LIST changes: +ALBU8.5H17 IH; -ALBU8.5H8 IH; +MELO-100 PO
[2020-11-26 01:53] VITALS: BP 170/87
[2020-11-26] MEDS ORDERED: proparacaine 0.5% ophthalmic drops 15ml LEFTEYE ONE (02:00)
[2020-11-26] MEDS ORDERED: erythromycin ophthalmic ointment 1gm tube LEFTEYE ONE (02:20)
[2020-11-26] MEDS ORDERED: ERYT1OIN6 LEFTEYE (02:22)
== END 2020-11-26 02:30 | disposition home or self-care (01) ==
LOC: ER 01:51
DX: J00 Acute nasopharyngitis [common cold] (principal); I10 Essential (primary) hypertension; I25.2 Old myocardial infarction; J44.9 Chronic obstructive pulmonary disease, unspecified; M19.90 Unspecified osteoarthritis, unspecified site; G89.29 Other chronic pain; Z90.89 Acquired absence of other organs; Z98.890 Other specified postprocedural states; Z72.89 Other problems related to lifestyle; Z56.0 Unemployment, unspecified; Z59.0 Homelessness; Z79.899 Other long term (current) drug therapy
CPT/HCPCS: 99283

== ENCOUNTER 2021-08-26 02:05 | Emergency (ER) | payer MEDICARE, MEDICAID ==
[~2021-08-26] VITALS: Ht 180.3 cm; Wt 75.0 kg
[2021-08-26] MEDS ORDERED: morphine 4 MG/ML inj SYRINge IV ONE (02:15)
[2021-08-26] MEDS ORDERED: ondansetron/PF 4mg/2ml inj IV ONE (02:15)
[2021-08-26 02:21] LABS: BASOPHILS # (AUTO) 0.1 X10'3 (0-0.2); BASOPHILS % (AUTO) 0.8 % (0-1); EOSINOPHILS # (AUTO) 0.3 X10'3 (0-0.9); EOSINOPHILS % (AUTO) 3.4 % (0-6); HEMATOCRIT 41.3 % (42.0-52.0); HEMOGLOBIN 13.6 g/dl (14.0-17.9); LYMPHOCYTES # (AUTO) 1.3 X10'3 (1.1-4.8); LYMPHOCYTES % (AUTO) 16.7 % (21-51); MEAN CORPUSCULAR HEMOGLOBIN 27.6 PG (27.0-31.0); MEAN CORPUSCULAR HGB CONC 32.9 g/dL (33.0-36.5); MEAN CORPUSCULAR VOLUME 83.7 FL (78-98); MEAN PLATELET VOLUME 8.3 FL (7.4-10.4); MONOCYTES # (AUTO) 0.8 X10'3 (0-0.9); MONOCYTES % (AUTO) 10.6 % (2-12); NEUTROPHILS # (AUTO) 5.3 X10'3 (1.8-7.7); NEUTROPHILS % (AUTO) 68.5 % (42-75); PLATELET COUNT 242 X10'3 (140-440); RED BLOOD COUNT 4.93 X10'6 (4.70-6.10); RED CELL DISTRIBUTION WIDTH 14.9 % (11.5-14.5); WHITE BLOOD COUNT 7.8 X10'3 (4.5-11.0)
[2021-08-26] MEDS ORDERED: iohexol 300mg/ml 100ml inj. ONE (02:23)
[2021-08-26] MEDS ORDERED: pantoprazole 40MG/NS 100ML BAG 100 ML IV ONE (02:25)
[2021-08-26] MEDS ORDERED: famotidine/PF 10 mg/ml inj IV ONE (02:25)
[2021-08-26] MEDS ORDERED: hydrALAZINE 20mg/ml inj. IV ONE (02:35)
[2021-08-26 02:41] LABS: ALANINE AMINOTRANSFERASE 35 U/L (12-78); ALBUMIN 3.9 G/DL (3.4-5.0); ALBUMIN/GLOBULIN RATIO 1.1 (1.1-1.5); ALKALINE PHOSPHATASE 79 IU/L (46-116); ANION GAP 2 (8-16); ASPARTATE AMINO TRANSFERASE 21 U/L (10-37); BILIRUBIN,TOTAL 0.5 MG/DL (0.1-1.0); BLOOD UREA NITROGEN 27 MG/DL (7-18); BUN/CREATININE RATIO 19.7 (5.4-32.0); CALCIUM 8.8 MG/DL (8.5-10.1); CHLORIDE 107 MMOL/L (99-107); CREATININE 1.37 MG/DL (0.60-1.10); POTASSIUM 3.3 MMOL/L (3.5-5.1); SODIUM 137 MMOL/L (135-145); TOTAL CARBON DIOXIDE 27.9 MMOL/L (24-32); TOTAL PROTEIN 7.6 G/DL (6.4-8.2); eGFR 53 ML/MIN
[2021-08-26 02:44] LABS: LIPASE 165 U/L (73-393)
[2021-08-26 02:53] LABS: GLUCOSE 96 MG/DL (70-104)
[2021-08-26] MEDS ORDERED: PANT-47 PO (04:31)
[2021-08-26] MEDS ORDERED: ONDA8TAB13 PO (04:31)
[2021-08-26 04:50] VITALS: BP 157/107
== END 2021-08-26 04:55 | disposition home or self-care (01) ==
LOC: ER 02:06
DX: R10.10 Upper abdominal pain, unspecified (principal); I10 Essential (primary) hypertension; J44.9 Chronic obstructive pulmonary disease, unspecified; G89.29 Other chronic pain; M54.9 Dorsalgia, unspecified; Z59.00 Homelessness unspecified; Z56.0 Unemployment, unspecified; Z79.899 Other long term (current) drug therapy
CPT/HCPCS: 36415; 71045; 74177; 80053; 83690; 84484; 85025; 96374; 96375; 99285; C9113; J0360; J2270; J2405; J3490; Q9967; 99284

== ENCOUNTER 2023-10-03 07:04 | Emergency (ER) | payer MEDICAID, MEDICARE ==
[~2023-10-03] VITALS: Ht 180.3 cm; Wt 75.6 kg
[~2023-10-03 07:04] MED LIST changes: +METO-292 PO; +ONDA-243 PO; +ONDA-245 PO; +PANT-47 PO
[2023-10-03 10:13] VITALS: BP 154/61; PULSE 67; RESP 14; TEMP 98.2; O2SAT 97
== END 2023-10-03 10:17 | disposition home or self-care (01) ==
LOC: ER 07:05
DX: S81.012A Laceration without foreign body, left knee, initial encounter (principal); R51.9 Headache, unspecified; V09.9XXA Pedestrian injured in unspecified transport accident, initial encounter; Y93.89 Activity, other specified; Y92.89 Other specified places as the place of occurrence of the external cause; Y99.8 Other external cause status
CPT/HCPCS: 12001; 70450; 71250; 72125; 73564; 74176; 93005; 99284; A6402; J7030; A6449

== ENCOUNTER 2023-10-06 22:07 | Emergency (ER) | payer MEDICARE ==
[~2023-10-06] VITALS: Ht 180.3 cm; Wt 77.3 kg
[~2023-10-06 22:07] MED LIST changes: -ONDA-243 PO; -ONDA-245 PO; +ONDA4TAB12 PO; +ONDA8TAB13 PO
[2023-10-06 22:53] LABS: ALANINE AMINOTRANSFERASE 37 U/L (12-78); ALBUMIN 3.8 G/DL (3.4-5.0); ALKALINE PHOSPHATASE 89 IU/L (46-116); ANION GAP 9 (8-16); BLOOD UREA NITROGEN 26 MG/DL (7-18); BUN/CREATININE RATIO 24.3 (10.0-20.0); CALCIUM 9.8 MG/DL (8.5-10.1); CHLORIDE 104 MMOL/L (99-107); CREATININE 1.07 MG/DL (0.60-1.10); LIPASE 41 U/L (16-77); SODIUM 143 MMOL/L (135-145); TOTAL CARBON DIOXIDE 29.7 MMOL/L (24-32); eCRCL 74 ML/MIN; eGFR 70 ML/MIN
[2023-10-06 23:05] LABS: ALBUMIN/GLOBULIN RATIO 0.9 (1.1-1.5); ASPARTATE AMINO TRANSFERASE 25 U/L (10-37); BILIRUBIN,TOTAL 0.4 MG/DL (0.1-1.0); GLUCOSE 106 MG/DL (70-104); TOTAL PROTEIN 8.1 G/DL (6.4-8.2)
[2023-10-06 23:42] LABS: EOSINOPHILS # (AUTO) 0.1 X10'3 (0-0.9); MEAN PLATELET VOLUME 8.8 FL (7.4-10.4); MONOCYTES # (AUTO) 0.9 X10'3 (0-0.9)
[2023-10-06 23:43] LABS: BASOPHILS % (AUTO) 0.2 % (0-1); EOSINOPHILS % (AUTO) 1.3 % (0-6); LYMPHOCYTES % (AUTO) 9.4 % (21-51); MEAN CORPUSCULAR HEMOGLOBIN 29.2 PG (27.0-31.0); MEAN CORPUSCULAR HGB CONC 33.3 g/dL (33.0-36.5); MEAN CORPUSCULAR VOLUME 87.7 FL (78-98); MONOCYTES % (AUTO) 8.2 % (2-12); NEUTROPHILS # (AUTO) 8.5 X10'3 (1.8-7.7); NEUTROPHILS % (AUTO) 80.9 % (42-75); PLATELET COUNT 243 X10'3 (140-440); RED BLOOD COUNT 4.79 X10'6 (4.70-6.10); RED CELL DISTRIBUTION WIDTH 14.9 % (11.5-14.5); WHITE BLOOD COUNT 10.5 X10'3 (4.5-11.0)
[2023-10-07] MEDS: ondansetron 4mg rapidly disintigrating tab PO ONE (00:15)
[2023-10-07] MEDS: HYDROcodone/acetaminophen 5mg/325mg tablet PO ONE (00:16)
[2023-10-07] MEDS: amLODIPine 5mg tablet PO ONE (00:16)
[2023-10-07 06:50] LABS: BILIRUBIN,URINE NEGATIVE (Neg); CLARITY,URINE CLEAR (Clear); COLOR,URINE YELLOW (Yellow); GLUCOSE, URINE NEGATIVE (Neg); KETONES,URINE NEGATIVE (Neg); LEUKOCYTE ESTERASE ,URINE NEGATIVE (Neg); NITRITES, URINE NEGATIVE (Neg); OCCULT BLOOD,URINE NEGATIVE (Neg); PH,URINE 5.5 (4.8-8.0); PROTEIN,URINE NEGATIVE (Neg); UROBILINOGEN,URINE 0.2 E.U/dL (0.2-1.0)
[2023-10-07 06:52] LABS: UA COLLECTION TYPE NON-SPECIFIED
[2023-10-07 09:16] VITALS: BP 154/96; PULSE 66; RESP 14; TEMP 98.2; O2SAT 96
== END 2023-10-07 09:21 | disposition home or self-care (01) ==
LOC: ER 22:08
DX: R10.13 Epigastric pain (principal); I10 Essential (primary) hypertension; I25.2 Old myocardial infarction; J45.909 Unspecified asthma, uncomplicated; M19.90 Unspecified osteoarthritis, unspecified site; G89.29 Other chronic pain; M54.9 Dorsalgia, unspecified; Z90.49 Acquired absence of other specified parts of digestive tract; Z72.89 Other problems related to lifestyle; Z60.2 Problems related to living alone; Z59.00 Homelessness unspecified; Z56.0 Unemployment, unspecified; Z79.899 Other long term (current) drug therapy
CPT/HCPCS: 36415; 74176; 76700; 80053; 81003; 83690; 85025; 99285

== ENCOUNTER 2024-08-01 09:02 | Emergency (ER) | payer MEDICARE ==
[~2024-08-01] VITALS: Ht 180.3 cm; Wt 90.9 kg
[~2024-08-01 09:02] MED LIST changes: +ONDA-243 PO; +ONDA-245 PO; -ONDA4TAB12 PO; -ONDA8TAB13 PO
[2024-08-01] MEDS: morphine 4 MG/ML inj SYRINge IV ONE (09:35)
[2024-08-01 09:40] LABS: BASOPHILS % (AUTO) 0.6 % (0-1); EOSINOPHILS # (AUTO) 0.2 X10'3 (0-0.9); EOSINOPHILS % (AUTO) 2.7 % (0-6); HEMATOCRIT 44.3 % (42.0-52.0); HEMOGLOBIN 14.8 g/dl (14.0-17.9); LYMPHOCYTES % (AUTO) 13.1 % (21-51); MEAN CORPUSCULAR HEMOGLOBIN 28.6 PG (27.0-31.0); MEAN CORPUSCULAR HGB CONC 33.4 g/dL (33.0-36.5); MEAN CORPUSCULAR VOLUME 85.5 FL (78-98); MEAN PLATELET VOLUME 8.6 FL (7.4-10.4); MONOCYTES # (AUTO) 0.7 X10'3 (0-0.9); MONOCYTES % (AUTO) 8.4 % (2-12); NEUTROPHILS # (AUTO) 5.9 X10'3 (1.8-7.7); NEUTROPHILS % (AUTO) 75.2 % (42-75); PLATELET COUNT 239 X10'3 (140-440); RED BLOOD COUNT 5.18 X10'6 (4.70-6.10); RED CELL DISTRIBUTION WIDTH 14.9 % (11.5-14.5); WHITE BLOOD COUNT 7.8 X10'3 (4.5-11.0)
[2024-08-01 09:56] LABS: ALANINE AMINOTRANSFERASE 67 U/L (12-78); ALBUMIN 3.6 G/DL (3.4-5.0); ALBUMIN/GLOBULIN RATIO 1.1 (1.1-1.5); ALKALINE PHOSPHATASE 84 IU/L (46-116); ANION GAP 6 (8-16); ASPARTATE AMINO TRANSFERASE 30 U/L (10-37); BILIRUBIN,TOTAL 0.2 MG/DL (0.1-1.0); BLOOD UREA NITROGEN 22 MG/DL (7-18); BUN/CREATININE RATIO 19.3 (10.0-20.0); CALCIUM 8.7 MG/DL (8.5-10.1); CHLORIDE 105 MMOL/L (99-107); CREATININE 1.14 MG/DL (0.60-1.10); LIPASE 34 U/L (16-77); POTASSIUM 4.4 MMOL/L (3.5-5.1); SODIUM 142 MMOL/L (135-145); TOTAL CARBON DIOXIDE 30.9 MMOL/L (24-32); eCRCL 69 ML/MIN; eGFR 64 ML/MIN
[2024-08-01 10:00] LABS: GLUCOSE 115 MG/DL (70-104)
[2024-08-01] MEDS ORDERED: iohexol 300mg/ml 100ml inj. ONE (10:14)
[2024-08-01 14:39] VITALS: TEMP 98.1
[2024-08-01 14:53] LABS: BILIRUBIN,URINE NEGATIVE (Neg); CLARITY,URINE SLIGHTLY CLOUDY (Clear); COLOR,URINE YELLOW (Yellow); GLUCOSE, URINE NEGATIVE (Neg); KETONES,URINE NEGATIVE (Neg); LEUKOCYTE ESTERASE ,URINE NEGATIVE (Neg); NITRITES, URINE NEGATIVE (Neg); OCCULT BLOOD,URINE MODERATE (Neg); PH,URINE 5.5 (4.8-8.0); PROTEIN,URINE TRACE mg/dl (Neg); UROBILINOGEN,URINE 0.2 E.U/dL (0.2-1.0)
[2024-08-01 14:54] LABS: UA COLLECTION TYPE STRAIGHT CATH
[2024-08-01 15:00] LABS: BACTERIA,URINE 1+ /HPF (Neg); MUCUS STRANDS NONE SEEN /LPF (Neg); RBC,URINE TNTC /HPF (0-2); SQUAMOUS EPITHELIAL CELL,UR NONE SEEN /LPF (FEW); WBC,URINE 0-4 /HPF (0-4)
[2024-08-01 15:45] VITALS: BP 162/85; PULSE 68; RESP 18; O2SAT 94
== END 2024-08-01 15:47 | disposition home or self-care (01) ==
LOC: ER 09:02
DX: R10.84 Generalized abdominal pain (principal); I10 Essential (primary) hypertension; J44.9 Chronic obstructive pulmonary disease, unspecified; M19.90 Unspecified osteoarthritis, unspecified site; Z90.49 Acquired absence of other specified parts of digestive tract
CPT/HCPCS: 36415; 74177; 80053; 81001; 83690; 85025; 96374; 99285; C1758; J2270; Q9967